=== PATIENT | female | born 1975 | race Caucasian/White ===

== ENCOUNTER 2017-03-23 09:49 | Emergency (ER) | payer SELFPAY | END 2017-03-23 10:48 | disposition left against medical advice (07) | LOC: E/R 09:49 | DX: M54.5 Low back pain (principal) | CPT/HCPCS: 99282 ==

== ENCOUNTER 2018-05-31 08:05 | Emergency (ER) | payer BC | END 2018-05-31 09:47 | disposition home or self-care (01) | LOC: FTE 09:47 | DX: M26.622 Arthralgia of left temporomandibular joint (principal) | CPT/HCPCS: 99283 ==

== ENCOUNTER 2018-09-11 16:01 | Emergency (ER) | payer BC ==
[2018-09-11] MEDS: HYDROCODONE/APAP (5/325) TAB PO (17:38)
[2018-09-11] MEDS: KETOROLAC 30 MG INJ IM (17:38)
== END 2018-09-11 19:21 | disposition home or self-care (01) ==
LOC: FTE 16:01
DX: S49.91XA Unspecified injury of right shoulder and upper arm, initial encounter (principal); R07.9 Chest pain, unspecified; V87.7XXA Person injured in collision between other specified motor vehicles (traffic), initial encounter
CPT/HCPCS: 71045; 72040; 81025; 99284-25